=== PATIENT | female | born 1965 | race Caucasian/White ===

== ENCOUNTER 2022-03-19 16:05 | Emergency (ER) | payer BC ==
[2022-03-19 16:10] VITALS: TEMP 97; BMI 34.0
[2022-03-19] MEDS ORDERED: morphine CARPU-JECT 2 MG/1 ML DISP.SYRIN IVPUSH ONE ×2 (16:56→19:18)
[2022-03-19 21:41] VITALS: BP 128/76; PULSE 76
== END 2022-03-19 23:26 | disposition home or self-care (01) ==
LOC: JER 16:05
PROC: 3E033NZ Introduction of Analgesics, Hypnotics, Sedatives into Peripheral Vein, Percutaneous Approach (ICD-10-PCS; principal; 2022-03-19)
PROC: 3E033NZ Introduction of Analgesics, Hypnotics, Sedatives into Peripheral Vein, Percutaneous Approach (ICD-10-PCS; 2022-03-19)
DX: S22.000A Wedge compression fracture of unspecified thoracic vertebra, initial encounter for closed fracture (principal); W01.0XXA Fall on same level from slipping, tripping and stumbling without subsequent striking against object, initial encounter
CPT/HCPCS: 72131-TC; 72141-TC; 72146-TC; 72148-TC; 72192-TC; 99285-25

== ENCOUNTER 2024-06-16 11:13 | Emergency (ER) | payer BC ==
[2024-06-16 11:20] VITALS: BP 133/76; PULSE 65; RESP 16; TEMP 98.3; BMI 22.4
[2024-06-16] MEDS ORDERED: ACETAMINOPHEN 500 MG TABLET (FP) ONE (12:57)
[2024-06-16] MEDS ORDERED: LIDOCAINE 4% PATCH TP ONE (12:57)
[2024-06-16] MEDS ORDERED: KETOROLAC TROMETHAMINE 30 MG/1 ML VIAL ONE (12:57)
[2024-06-16] MEDS: KETOROLAC TROMETHAMINE 30 MG/1 ML VIAL IM ONE (13:00)
[2024-06-16] MEDS: ACETAMINOPHEN 500 MG TABLET (FP) PO ONE (13:00)
[2024-06-16] MEDS: LIDOCAINE 4% PATCH TP ONE (13:00)
[2024-06-16] MEDS ORDERED: LIDOCAINE PATCH REMOVAL MC SCH (22:00)
== END 2024-06-16 14:02 | disposition home or self-care (01) ==
LOC: JERFT 11:13
PROC: 3E0133Z Introduction of Anti-inflammatory into Subcutaneous Tissue, Percutaneous Approach (ICD-10-PCS; principal; 2024-06-16)
DX: M54.50 Low back pain, unspecified (principal); W10.8XXA Fall (on) (from) other stairs and steps, initial encounter
CPT/HCPCS: 72100-TC-FY; 99284-25